=== PATIENT | male | born 1985 | race Hispanic/Latino ===

== ENCOUNTER 2017-10-30 14:40 | Emergency (ER) | payer MEDICAID ==
[2017-10-30 15:04] VITALS: BP 133/85; PULSE 93; RESP 19; TEMP 97.4; O2SAT 99
--- NOTE | 2017-10-30 15:17 | C.PDOC ---
History Of Present Illness 32 y/o male presents to the ER for detox from ETOH and heroin. Patient states that he drinks 4 pints of vodka each day and he uses 10 10 - 50 bags of hroin ecah day . He notes that he was seen earlier at [facility] today. He was given Clonidine and Librium. Of note, he earns money by doing day jobs. Time Seen by Provider: 10/30/17 15:09 Chief Complaint (Nursing): Substance Abuse History Per: Patient History/Exam Limitations: no limitations Past Medical History Reviewed: Historical Data, Nursing Documentation, Vital Signs Vital Signs: Last Vital Signs Temp 97.4 F L 10/30/17 15:00 Pulse 93 H 10/30/17 15:00 Resp 19 10/30/17 15:00 BP 133/85 10/30/17 15:00 Pulse Ox 99 10/30/17 15:17 - Medical History PMH: Bipolar Disorder, HTN Surgical History: No Surg Hx Family History: States: No Known Family Hx - Social History Hx Alcohol Use: Yes Hx Substance Use: Yes - Immunization History Hx Tetanus Toxoid Vaccination: Yes Hx Influenza Vaccination: Yes Hx Pneumococcal Vaccination: Yes Review Of Systems Except As Marked, All Systems Reviewed And Found Negative. Physical Exam - Physical Exam Appears: No Acute Distress Skin: Normal Color, Warm, Dry, Other (track carbajal in right antecubital region) Head: Atraumatic, Normacephalic Eye(s): bilateral: Normal Inspection Nose: Normal Oral Mucosa: Moist Neck: Supple Chest: Symmetrical Cardiovascular: Rhythm Regular Respiratory: Normal Breath Sounds, No Rales, No Rhonchi, No Wheezing Neurological/Psych: Oriented x3, Normal Speech ED Course And Treatment O2 Sat by Pulse Oximetry: 99 (RA) Pulse Ox Interpretation: Normal Medical Decision Making Medical Decision Making: alcohol and heroine abuse seeks detox to gain access to Methadone programs. No detox available today no withdrawal s/s now (treated @ [facility] earlier today or further intoxicated ) Disposition Doctor Will See Patient In The: Office Counseled Patient/Family Regarding: Studies Performed, Diagnosis - Disposition Referrals: [facility] [Outside] [facility] [Outside] [facility] [Outside] Disposition: HOME/ ROUTINE Disposition Time: 15:16 Condition: GOOD Additional Instructions: follow up as instructed by our Crisis Evaluators Instructions: Drug Abuse and Drug Addiction (DC), Opioid Use Disorder Forms: [employer] [facility] (Colombian) - Clinical Impression Clinical Impression: Alcohol abuse, Heroin abuse - Scribe Statement The provider has reviewed the documentation as recorded by the Scribe Jeff Monreal Provider Attestation: All medical record entries made by the Scribe were at my direction and personally dictated by me. I have reviewed the chart and agree that the record accurately reflects my personal performance of the history, physical exam, medical decision making, and the department course for this patient. I have also personally directed, reviewed, and agree with the discharge instructions and disposition.
== END 2017-10-30 15:35 | disposition home or self-care (01) ==
LOC: C.ER 14:40
DX: F11.10 Opioid abuse, uncomplicated (principal); F10.10 Alcohol abuse, uncomplicated